=== PATIENT | female | born 1975 | race Two or more races ===

== ENCOUNTER 2020-10-29 12:41 | Outpatient (CLI) | payer OTHER | END 2020-10-29 13:53 | disposition home or self-care (01) | LOC: LAB 12:41 | DX: Z20.828 Contact with and (suspected) exposure to other viral communicable diseases (principal) ==

== ENCOUNTER 2022-05-01 06:00 | Day surgery (SDC) | payer OTHER ==
[~2022-05-01] VITALS: Ht 162.6 cm; Wt 74.8 kg
[2022-05-01] MEDS ORDERED: MORGIDOX100 MG PO (11:56)
[2022-05-01] MEDS ORDERED: NAPR500T14 PO (11:56)
== END 2022-05-01 16:50 | disposition home or self-care (01) ==
LOC: CIR.AMB 06:00
PROVIDERS: ATTEND Obstetrics & Gynecology
DX: D25.0 Submucous leiomyoma of uterus (principal); Z20.822 Contact with and (suspected) exposure to COVID-19; Z86.16 Personal history of COVID-19